=== PATIENT | male | born 1995 | race Caucasian/White ===

== ENCOUNTER 2018-03-30 03:26 | Emergency (ER) | payer BC, OTHER ==
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
[2018-03-30] MEDS ORDERED: CHLORHEXIDINE GLUCONATE 4 % 15 ML UD TOP ONE (04:43)
[2018-03-30] MEDS ORDERED: NEOMYCIN-BACITRACIN-POLYMYXIN 0.9 GM UD TOP ONE (04:58)
[2018-03-30 05:46] VITALS: BP 128/71; TEMP 98.2; O2SAT 97
== END 2018-03-30 05:43 | disposition home or self-care (01) ==
LOC: ER 03:26
DX: S00.93XA Contusion of unspecified part of head, initial encounter (principal); S80.811A Abrasion, right lower leg, initial encounter; S50.311A Abrasion of right elbow, initial encounter; S70.211A Abrasion, right hip, initial encounter; V48.7XXA Person on outside of car injured in noncollision transport accident in traffic accident, initial encounter; Y92.410 Unspecified street and highway as the place of occurrence of the external cause

== ENCOUNTER 2018-04-01 21:38 | Emergency (ER) | payer OTHER ==
[2018-04-01 21:52] VITALS: TEMP 98.4
[2018-04-01] MEDS ORDERED: SODIUM CHLORIDE 0.9% 1000ML 1,000 ML IVS ONE (22:15)
[2018-04-01] MEDS ORDERED: KETOROLAC TROMETHAMINE INJ 30 MG/ML VIAL IV ONE (22:15)
[2018-04-01] MEDS ORDERED: PROMETHAZINE HCL INJ 25 MG in SODIUM CHLORIDE 0.9% 50ML 50 ML IVPB ONE (22:16)
[2018-04-01] MEDS ORDERED: PROMETHAZINE HCL INJ 25 MG/ML VIAL ONE (22:41)
[2018-04-01] MEDS ORDERED: SODIUM CHLORIDE 0.9% 50ML 50 ML ONE (22:41)
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
[2018-04-02 00:07] VITALS: BP 113/60; O2SAT 100
== END 2018-04-02 00:07 | disposition home or self-care (01) ==
LOC: ER 21:38
DX: S06.0X0A Concussion without loss of consciousness, initial encounter (principal); G44.309 Post-traumatic headache, unspecified, not intractable; F17.220 Nicotine dependence, chewing tobacco, uncomplicated
CPT/HCPCS: 72040; A4216; J1885; J2550; J7030

== ENCOUNTER → 2018-05-21 | Outpatient (CLI) | payer OTHER ==
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
== END ==
LOC: MRI 13:02
PROVIDERS: ATTEND Family Medicine
DX: R41.9 Unspecified symptoms and signs involving cognitive functions and awareness (principal)

== ENCOUNTER 2019-02-28 15:15 | Observation (INO) | payer OTHER ==
[2019-02-28] MEDS ORDERED: ONDANSETRON INJ 4 MG/2 ML VIAL IV ONE (16:29)
[2019-02-28] MEDS ORDERED: MORPHINE SULFATE INJ 10 MG/ML VIAL IV ONE (16:29)
[2019-02-28] MEDS ORDERED: ONDANSETRON INJ 4 MG/2 ML VIAL ONE (16:30)
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
[2019-02-28] MEDS ORDERED: MORPHINE SULFATE INJ 10 MG/ML VIAL ONE (16:31)
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
[2019-02-28] MEDS ORDERED: LIDOCAINE 1% 10 ML VIAL INJ ONE (17:21)
[2019-02-28] MEDS ORDERED: levoFLOXacin 500MG IV 500 MG in PREMIX BAG 1 BAG IVPB ONE (17:56)
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
[2019-02-28] MEDS ORDERED: levoFLOXacin 500MG IV 100 ML IVPB ONE (19:20)
[2019-02-28] MEDS ORDERED: HYDROmorphone HCL INJ 2 MG/ML VIAL IV PRN (19:54)
[2019-02-28] MEDS ORDERED: ONDANSETRON INJ 4 MG/2 ML VIAL IV PRN ×2 (19:54→21:27)
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
[2019-02-28] MEDS ORDERED: SODIUM CHLORIDE 0.9% (FLUSH) 10 ML SYG IV PRN (20:58)
[2019-02-28] MEDS ORDERED: ACETAMINOPHEN 325 MG TAB PO PRN (20:58)
[2019-02-28] MEDS ORDERED: IV SET AND CAP CHANGE INJ INJ SCH (21:00)
[2019-02-28] MEDS: HYDROcodone 5MG/APAP 325MG 1 EA TAB PO PRN (21:07)
[2019-02-28] MEDS: SODIUM CHLORIDE 0.9% (FLUSH) 10 ML SYG IV SCH (21:41)
[2019-03-01] MEDS ORDERED: KCL 20MEQ/D5 1/2NS 1,000 ML IVS ONE (00:36)
[2019-03-01] MEDS ORDERED: KCL 20MEQ/0.45% NS 0 ML IVS ONE (01:28)
[2019-03-01] MEDS: HYDROcodone 5MG/APAP 325MG 1 EA TAB PO PRN ×4 (01:31→15:33)
[2019-03-01] MEDS ORDERED: PANTOPRAZOLE SODIUM IV 40 MG VIAL IV SCH (06:30)
--- NOTE | 2019-03-01 06:51 | RAD ---
EXAM: XR Chest, 2 Views CLINICAL HISTORY: The patient is 23 years old and is Male; fu lt apical pneumothorax TECHNIQUE: Frontal and lateral views of the chest. COMPARISON: No relevant prior studies available. FINDINGS: LUNGS: Unremarkable. No consolidation. PLEURAL SPACE: Unremarkable. No obvious pneumothorax. HEART: No significant enlargement of the cardiac silhouette. MEDIASTINUM: Unremarkable. BONES/JOINTS: Left mid clavicular fracture again noted. IMPRESSION: No acute findings visualized within the chest. No obvious pneumothorax. Electronically signed by: Jonna Khan MD 03/01/2019 6:50 AM CDT
[2019-03-01] MEDS: SODIUM CHLORIDE 0.9% (FLUSH) 10 ML SYG IV SCH (09:10)
[2019-03-01 09:29] VITALS: O2SAT 97
[2019-03-01 09:51] VITALS: TEMP 98
[2019-03-01] MEDS ORDERED: ACETAMINOPHEN W/ COD #4 TAB 1EA TAB PO ONE (11:42)
[2019-03-01] MEDS ORDERED: ACETAMINOPHEN W/ COD #4 TAB 1EA TAB PO PRN (11:44)
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
[2019-03-01 12:48] VITALS: BP 112/65
[2019-03-01] MEDS ORDERED: IBUPROFEN 400 MG TAB PO ONE (15:27)
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
== END 2019-03-01 16:18 | disposition home or self-care (01) ==
LOC: ER 15:15 → MS 19:00
PROVIDERS: ADMIT Nurse Practitioner Acute Care; ATTEND Nurse Practitioner Acute Care
DX: S42.022A Displaced fracture of shaft of left clavicle, initial encounter for closed fracture (principal); S27.0XXA Traumatic pneumothorax, initial encounter; S01.02XA Laceration with foreign body of scalp, initial encounter; S27.322A Contusion of lung, bilateral, initial encounter; R51 Headache; D72.829 Elevated white blood cell count, unspecified; F90.9 Attention-deficit hyperactivity disorder, unspecified type; F17.220 Nicotine dependence, chewing tobacco, uncomplicated; Z88.0 Allergy status to penicillin; V57.5XXA Driver of pick-up truck or van injured in collision with fixed or stationary object in traffic accident, initial encounter; W22.11XA Striking against or struck by driver side automobile airbag, initial encounter; Y92.410 Unspecified street and highway as the place of occurrence of the external cause; Y93.89 Activity, other specified
CPT/HCPCS: 12001; 96366; 96367; 96365; 96375 ×2; 96376; J1956; J2270; J2405 ×2; 80053 ×2; 36415 ×3; 81001; 85025 ×2; 85730; 85610; 71045; 71046; 72170; 73000; 70450; 72125; 94760 ×2; 99406; 99285; G0378

== ENCOUNTER 2019-03-02 15:27 | Emergency (ER) | payer OTHER ==
[2019-03-02 17:47] VITALS: O2SAT 98
[2019-03-02 17:55] VITALS: BP 123/74; TEMP 98.9
== END 2019-03-02 17:35 | disposition home or self-care (01) ==
LOC: ER 15:27
DX: G44.209 Tension-type headache, unspecified, not intractable (principal); R11.2 Nausea with vomiting, unspecified; S16.1XXA Strain of muscle, fascia and tendon at neck level, initial encounter; F17.220 Nicotine dependence, chewing tobacco, uncomplicated; Z88.0 Allergy status to penicillin; X58.XXXA Exposure to other specified factors, initial encounter; Y92.9 Unspecified place or not applicable
CPT/HCPCS: 36415; 74019; 80053; 82150; 83605; 83690; 85025; A4216; J1885; J2550; J7030